=== PATIENT | female | born 1990 | race American Indian/Alaskan Native ===

== ENCOUNTER 2021-12-22 12:19 | Emergency (ER) | payer SELFPAY ==
--- NOTE | 2021-12-22 13:09 | Emergency Department Report ---
ED Rash HPI - HPI Chief Complaint: Skin Rash Stated Complaint: OUTBREAK ON FACE Time Seen by Provider: 12/22/21 13:07 ED Review of Systems ROS: Stated complaint: OUTBREAK ON FACE Other details as noted in HPI Comment: All other systems reviewed and negative ED Past Medical Hx - Past Medical History Previous Medical History?: No - Surgical History Past Surgical History?: No - Family History Family history: no significant - Social History Smoking Status: Never Smoker Substance Use Type: None - Medications Home Medications: Home Medications Medication Instructions Recorded Confirmed Last Taken Type Cetirizine HCl [ZyrTEC] 10 mg PO DAILY #30 capsule 12/22/21 Unknown Rx diphenhydrAMINE [Benadryl CAP] 25 mg PO Q8HR PRN #20 capsule 12/22/21 Unknown Rx predniSONE [Deltasone] 20 mg PO DAILY #5 tablet 12/22/21 Unknown Rx Rash Exam - Exam General: Vital signs noted. No distress. Alert and acting appropriately. HEENT: No Periorbital Edema, No Conjuctival Injection, No Chemosis, No Perioral Edema, No Tongue Edema, No Uvular Edema, No Compromised Airway, No Drooling Lungs: Yes Good Air Exchange (Normal Breath Sounds), No Wheezes, No Ronchi, No Stridor, No Cough, No Labored Respirations, No Retractions, No Use of Accessory Muscles, No Other Abnormal Lung Sounds Heart: Yes Regular, No Murmur Skin: Yes Other Other: Positive: Abdomen Normal, Neurologic Normal, Musculoskeletal Normal ED Course Vital Signs 12/22/21 12:51 Temperature 98.9 F Pulse Rate 76 Respiratory 14 Rate Blood Pressure 128/75 O2 Sat by Pulse 98 Oximetry Critical care attestation.: If time is entered above; I have spent that time in minutes in the direct care of this critically ill patient, excluding procedure time. ED Disposition Clinical Impression: Rash Disposition: 01 HOME / SELF CARE / HOMELESS Is pt being admited?: No Does the pt Need Aspirin: No Condition: Stable Instructions: Rash, Adult Additional Instructions: meds as ordered today follow up with pcp referral below try to narrow allergen stay well hydrated with water Referrals: ALDEN SANABRIA MD [Staff Physician] - 3-5 Days Forms: Work/School Release Form(ED), Accompanied Note Time of Disposition: 13:08
[2021-12-22 13:22] VITALS: BP 115/87
== END 2021-12-22 13:21 | disposition home or self-care (01) ==
LOC: ED 12:19
DX: R21 Rash and other nonspecific skin eruption (principal)
CPT/HCPCS: 99282